=== PATIENT | male | born 1985 | race Caucasian/White ===

== ENCOUNTER 2019-05-19 23:51 | Emergency (ER) | payer SELFPAY ==
[~2019-05-19] VITALS: Ht 175.3 cm; Wt 70.3 kg
[2019-05-20 00:04] VITALS: BP 124/94
== END 2019-05-20 00:10 | disposition left against medical advice (07) ==
LOC: ER 23:53
DX: Z02.89 Encounter for other administrative examinations (principal); Z53.21 Procedure and treatment not carried out due to patient leaving prior to being seen by health care provider